=== PATIENT | female | born 1980 | race Caucasian/White ===

== ENCOUNTER 2017-09-21 12:10 | Day surgery (SDC) | payer OTHER ==
[2017-09-21] MEDS ORDERED: LIDOCAINE 100 MG SYRINGE (13:41)
[2017-09-21] MEDS ORDERED: PROPOFOL 40 ML (13:41)
== END 2017-09-21 15:42 | disposition home or self-care (01) ==
LOC: GIL 12:10
DX: K63.9 Disease of intestine, unspecified (principal)
CPT/HCPCS: 45380; 84703; 88305